=== PATIENT | female | born 1975 | race Caucasian/White ===

== ENCOUNTER 2024-03-03 12:42 | Emergency (ER) | payer OTHER, SELFPAY ==
[2024-03-03 12:51] VITALS: BP 160/98
--- NOTE | 2024-03-03 15:38 | ED.GENMED ---
History of Present Illness
General
Chief Complaint: Musculo-Skeletal Complaint
Source: patient
Exam Limitations: none
Time Seen by Provider: 03/03/24 14:11
Nursing documentation reviewed up to this point in time: agreed with
Travel History
Have you had any contact with someone who has COVID-19?: No
Do you have any symptoms of coronavirus? Fever > 100 degrees, chills, cough, shortness of breath, sore throat, loss of taste or smell, muscle aches, or headache?: No
History of Present Illness
History of Present Illness:
48-year-old female with past medical history of GERD, PCOS, hypothyroidism, chronic low back pain status post lumbar fusion who presents to the emergency room for evaluation of right thigh pain. Patient reports onset of symptoms a few weeks ago and
she feels they are generally worsening. She describes a sensation 'like an electric shock' in the right anterior thigh that radiates down towards the knee. It is worse with movement, no relieving factors noted. She denies any associated swelling.
She denies any associated rash. She denies any associated trauma. She has not had any back pain. She denies any other issues. She says that she did take a muscle relaxer yesterday which did not seem to help.
Past History
Past History
ED Past Medical History: GERD, Hypothyroidism, Psychiatric (Depression, anxiety) and Other (Orthostatic hypotension)
ED Past Surgical History: Appendectomy, Cholecystectomy, , Gynecological, Orthopedic and Other (Gastric bypass 2014)
Social History
Tobacco: Non-smoker
Alcohol: Occasional
Personal:
Living: with family
Employment: Employed
Family History
Family History: Other (Noncontributory)
Review of Systems
Review of Systems
All Other Systems: ROS reviewed and negative except as documented in HPI and ROS
Constitutional: Denies fever
Respiratory: Denies cough or trouble breathing
Cardiac: Denies chest pain
ABD/GI: Denies abdominal pain
: Denies flank pain
Musculoskeletal: Reports other (Thigh pain); Denies neck pain or back pain
Neurological: Denies headache
Phy Exam
Physical Exam
Physical Exam:
General: Awake, alert, oriented x3; no acute distress
Head: Normocephalic, atraumatic
Eyes: Conjunctiva normal
Throat: Airway intact, handling secretions
Neck: Trachea midline, supple without meningismus
Lungs: Breathing comfortably no distress
Heart: Tachycardia with regular rhythm
Abd: Soft, non distended, nontender
Neuro: No gross deficits
Skin: no rash�specifically no rash in the right thigh/inguinal crease
Extremities: No edema in extremities, equal pulses in all extremities�specifically she has a strong right femoral pulse, strong right DP and PT pulse; she does have some tenderness along the anterior medial thigh; she is able to move the right hip
and knee through full range of motion but has pain with full flexion of the hip
Scores
Heart Failure Risk
Heart Failure Risk Score: Not Applicable
Heart Score for Chest Pain Patients
STEMI patient?: Not applicable
Withdrawal Assessment of Alcohol
Withdrawal Assessment Completed?: Not applicable
Course
Orders/Labs/Results
Orders:
Orders
03/03/24 14:16
US Periph Venous LOWER Ext RT Urgent
Comment:
Reason For Exam: RLE pain
Vital Signs
Initial and Last Documented VS:
Initial Vital Signs
Temp Pulse Resp BP Pulse Ox
36.6 C 107 18 160/98 99
03/03/24 12:51 03/03/24 12:51 03/03/24 12:51 03/03/24 12:51 03/03/24 12:51
Last Documented Vital Signs
Temp Pulse Resp BP Pulse Ox
36.6 C 107 18 160/98 99
03/03/24 12:51 03/03/24 12:51 03/03/24 12:51 03/03/24 12:51 03/03/24 12:51
MDM/Problems Addressed
Differential Diagnosis Includes:
DVT, radiculopathy/pinched nerve, muscular strain, fracture/dislocation very unlikely with patient weightbearing and moving hip and knee through full range of motion
MDM/Problems Addressed:
48-year-old female with history as above presents for evaluation of atraumatic right anterior thigh pain for the past few weeks which she describes as electric shock; she does have a long history of back pain and is status post a lumbar fusion. No
trauma or injury. She is hypertensive and mildly tachycardic but is otherwise normal vitals. Physical exam as above. Suspect that this is likely radiculopathy (based on location of pain, L2 dermatome affected) based on description of pain with
her chronic back issues; will send for ultrasound to rule out DVT. She has bounding distal pulses and a warm well-perfused leg with brisk capillary refill�nothing to suggest claudication or arterial insufficiency. She has no rash or ecchymosis, no
swelling in the area. Will treat patient symptomatically and reassess after the above.
Acute Exacerbation and/or Progression of Chronic Illness:
Acutely hypertensive likely related to pain�treat pain but no emergent antihypertensive indicated at present
Acute Exacerbation and/or Progression of Chronic Illness: HTN
*Radiology
Radiology exam reviewed: radiology read reviewed
*Pulse Oximetry
Patient hypoxic: no
*Critical Care Note
Total Time (30-74mins, 75-104mins- exclusive of procedures): Not Applicable
Data Reviewed
Source: patient and spouse
Further Testing Considered But Not Given:
Considered x-ray but with no trauma and full range of motion in left hip and knee, patient weightbearing very low clinical suspicion for fracture and no emergent indication for x-ray at this point
ED Attending Note
-
Portions of this chart may have been created with voice recognition software.� Occasional wrong word or��sound alike� substitutions may have occurred due to the inherent limitations of voice recognition software.
Discharge Plan
Departure
Patient Disposition: Home (Routine Discharge)
Date of Disposition: 03/03/24
Time of Disposition: 15:51
Patient with high blood pressure during this ER visit?: Yes
Discharge Problem:
Acute lumbar radiculopathy, Pain in right thigh
Instructions: Radiculopathy (DC)
Prescriptions:
New
prednisone 10 mg Tablet
See Rx Instructions .ROUTE .COMPLEX Qty: 45 0RF
Rx Instructions:
Take By Mouth:
50 mg daily x3 days, 40 mg daily x3 days,
30 mg daily x3 days, 20 mg daily x3 days,
10 mg daily x3 days
tramadol 50 mg tablet
50 mg PO Q8H PRN (Reason: Pain) 5 Days Qty: 14 0RF
No Action
omeprazole [Prilosec] 40 MG capsule,delayed release(DR/EC)
40 mg PO QPM
levothyroxine 125 MCG tablet
125 mcg PO HS
multivitamin [Daily Multiple] 1 EACH tablet
1 ea PO BID
cyanocobalamin (vitamin B-12) 1,000 MCG tablet
500 mcg PO TID
venlafaxine [Effexor] 100 MG tablet
100 mg PO BID
docusate sodium [Colace] 100 MG capsule
100 mg PO BID
cholecalciferol (vitamin D3) 2,000 UNIT tablet
2,000 unit PO DAILY
Med For Ortho Hypotension
1 mg PO DAILY
Referrals:
Cathy Levin MD [Family Provider] - Follow up in 5-7 days
Activity Restrictions/Additional Instructions:
Thank you for visiting the Emergency Department at [facility].
1. Please schedule a follow up appointment as directed. Call first thing tomorrow morning to make an appointment.
2. If indicated, please take your medications as instructed and indicated on discharge paperwork.
3. If any of your symptoms do not improve, or persist, or become more severe within 6-12 hours, please return to the emergency department for further care.
4. Please return to the emergency department if you develop a headache, neck pain/stiffness, fever greater than 100.4F, chest pain, shortness of breath, persistent nausea, vomiting, slurred speech, difficulty walking, numbness/tingling, weakness,
signs of infection or any other symptoms that are worrisome to you.
Please call [phone] if you have any questions.
Interventions
Interventions:
*Risk Screen - Suicide Last Done: 03/03/24 12:52
*General Assessment Last Done: 03/03/24 12:52
*Neglect/Abuse Screening Last Done: 03/03/24 12:52
*ED COVID-19 Vaccine History Last Done: 03/03/24 12:52
ED-Musculoskeletal Assessment Last Done: 03/03/24 15:21
Discharge Date and Time
Print Language: CROATIAN
[2024-03-03] MEDS: DELTASONE 50 MG PO (15:51)
[2024-03-03] MEDS: ULTRAM 50 MG PO (15:51)
[2024-03-03 16:12] VITALS: BP 158/92
== END 2024-03-03 16:13 | disposition home or self-care (01) ==
LOC: EMR 12:42
PROVIDERS: EMERGENCY PHYSICIAN Emergency Medicine; FAMILY PHYSICIAN Family Medicine
DX: M54.16 Radiculopathy, lumbar region (principal); M79.651 Pain in right thigh; I10 Essential (primary) hypertension; E03.9 Hypothyroidism, unspecified; E28.2 Polycystic ovarian syndrome
CPT/HCPCS: 99284; 93971

== ENCOUNTER 2024-05-23 12:02 | Emergency (ER) | payer OTHER, SELFPAY ==
[2024-05-23] VITALS (8 sets, daily range): BP systolic 133–185; BP diastolic 74–120; BMI 43.2
--- NOTE | 2024-05-23 12:10 | ED.PDOC.TRB ---
ED Provider Triage
-
48-year-old female presents with sudden onset headache starting at 10 AM this morning. She also notes vision change and nausea. She has had imaging studies through [facility] in the recent past including MRA of the head and CTA of the head and
neck. She does not get headaches typically. Patient is neurologically intact ambulated into triage but due to sudden onset headache, CT of the head was ordered.
--- NOTE | 2024-05-23 13:19 | ED.GENMED ---
History of Present Illness
General
Chief Complaint: Headache
Source: patient, records and spouse
Exam Limitations: none
Time Seen by Provider: 05/23/24 12:59
Nursing documentation reviewed up to this point in time: agreed with
History of Present Illness
History of Present Illness:
Patient is a 48-year-old female who presents to the emergency department complaining of a right temporal headache that started 10 AM today that was somewhat sudden and off set. Patient feels slightly off balance but denies any focal weakness or
speech changes. Since the end of March the patient states her vision has been walking. Patient describes as it is blurry and seems to be moving about. Patient denies any recent illnesses or injuries. Patient denies fever, chills, nasal
congestion, sore throat or cough. Patient denies any cardiovascular or respiratory symptoms. Patient is mildly nauseous but denies any vomiting, diarrhea or abdominal pain. Patient denies any numbness or paresthesias. Patient reportedly had an
MRI/MRA which showed an aneurysm.
Past History
Past History
ED Past Medical History: GERD, Hypothyroidism, Psychiatric (Depression, anxiety) and Other (Orthostatic hypotension)
ED Past Surgical History: Appendectomy, Cholecystectomy, , Gynecological, Orthopedic and Other (Gastric bypass 2014)
Social History
Tobacco: Non-smoker
Alcohol: Occasional
Personal:
Living: with family
Employment: Employed
Family History
Family History: Other (Noncontributory)
Review of Systems
Review of Systems
All Other Systems: ROS reviewed and negative except as documented in HPI and ROS
Constitutional: Reports no symptoms
EENT: Reports other (Visual blurring since march)
Respiratory: Reports no symptoms
Cardiac: Reports no symptoms
ABD/GI: Reports nausea; Denies abdominal pain, vomiting, diarrhea, constipated or anorexia
: Reports no symptoms
Musculoskeletal: Reports no symptoms
Skin: Reports no symptoms
Neurological: Reports headache; Denies dizzy, weakness or numbness
Hematologic/Lymphatic: Reports no symptoms
Psychiatric: Reports no symptoms
Phy Exam
Physical Exam
Physical Exam:
Physical Exam
General: mild to moderate distress, alert and appropriate, well nourished, well hydrated
HENT: Normocephalic, supple with no lymphadenopathy, no thyromegaly
Eyes: Clear sclera, conjuctiva without injection, extraocular muscles intact, pupils equal reactive to light and accommodation, no visual tubbs cuts
Heart: Regular rhythm and rate. No S3, S4. No murmur. No NVD, bruit
Lungs: No respiratory distress, no stridor, lung sounds clear and equal bilaterally
Abdomen: Soft, nontender, no organomegaly, no CVA tenderness, BS good
Neuro: Alert and oriented x 3, CN II - XII intact, no motor focality, no cerebellar dysfunction
Skin: no rash
Psychiatric: well kept. interactive and cooperative
Extremities: No edema, cyanosis, tenderness, Good and equal peripheral pulses.
Course
Orders/Labs/Results
Orders:
Orders
05/23/24 12:08
CT Head W/o Iv Contrast Urgent
Comment:
Reason For Exam: headache, vision change
05/23/24 13:15
Ketorolac [Toradol] 15 mg IV NOW STA
Ondansetron Injectable [Zofran] 4 mg IV NOW STA
05/23/24 13:19
Diphenhydramine [Benadryl] 12.5 mg IV NOW STA
Prochlorperazine [Compazine] 5 mg IV NOW STA
05/23/24 13:27
Complete Blood Count/With Diff Urgent
Comprehensive Metabolic Panel Urgent
Lyme Progressive Urgent
Sed Rate [Erythrocyte Sed Rate] Urgent
Abnormal Lab Results
05/23/24
13:27
Hct 36.4 L %
(37.0-47.0)
RDW 15.9 H %
(11.5-14.5)
Plt Count 419 H 10^3/uL
(130-400)
MPV 10.6 H fL
(7.4-10.4)
ESR 26 H mm/hour
(0-20)
Glucose 135 H mg/dl
(70-99)
05/23/24 13:27
05/23/24 13:27
Vital Signs
Initial and Last Documented VS:
Initial Vital Signs
Temp Pulse Resp BP Pulse Ox
98.0 F 107 18 185/120 100
05/23/24 12:03 05/23/24 12:03 05/23/24 12:03 05/23/24 12:03 05/23/24 12:03
Last Documented Vital Signs
Temp Pulse Resp BP Pulse Ox
98.0 F 92 16 136/74 100
05/23/24 12:03 05/23/24 16:34 05/23/24 16:34 05/23/24 16:34 05/23/24 16:34
*Radiology
Radiology exam reviewed: radiology read reviewed (CT unremarkable)
*Pulse Oximetry
Patient hypoxic: no
*EKG
Interpreted by ED Provider?: NA
*School Coordinator Interpretation
Rate: School Coordinator- N/A
*Critical Care Note
Total Time (30-74mins, 75-104mins- exclusive of procedures): Not Applicable
Update Note
Update Note:
Patient feeling better. Patient does have an appointment with allergy at the end of July at [place]. Will refer the patient here and see if she can be seen sooner. Etiology of the patient's headache is not entirely clear. Patient does seem
to be somewhat old to be getting first-time migraines however certainly could be an issue. Does not appear to be ruptured aneurysm. Patient's sed rate is mildly elevated.
ED Attending Note
-
Portions of this chart may have been created with voice recognition software.� Occasional wrong word or��sound alike� substitutions may have occurred due to the inherent limitations of voice recognition software.
Discharge Plan
Departure
Patient Disposition: Home (Routine Discharge)
Date of Disposition: 05/23/24
Time of Disposition: 15:08
Patient with high blood pressure during this ER visit?: Yes
Condition: Fair
Covid-19: Not Applicable
Discharge Problem:
Headache
Instructions: Migraines (DC), Headache, Adult (DC), BLOOD PRESSURE
Prescriptions:
No Action
omeprazole [Prilosec] 40 MG capsule,delayed release(DR/EC)
40 mg PO QPM
levothyroxine 125 MCG tablet
125 mcg PO HS
multivitamin [Daily Multiple] 1 EACH tablet
1 ea PO BID
cyanocobalamin (vitamin B-12) 1,000 MCG tablet
500 mcg PO TID
venlafaxine [Effexor] 100 MG tablet
100 mg PO BID
docusate sodium [Colace] 100 MG capsule
100 mg PO BID
cholecalciferol (vitamin D3) 2,000 UNIT tablet
2,000 unit PO DAILY
Med For Ortho Hypotension
1 mg PO DAILY
Referrals:
Maria Elena Schofield PA [Family Provider] - Follow up in 5-7 days
Carmen Lemon DO [Active] - Call in 1-3 days for appt
Activity Restrictions/Additional Instructions:
Continue present medications and therapy. Use acetaminophen 1000 mg or ibuprofen 400 mg every 6 hours for pain. Any increasing pain or changes please return immediately.
Interventions
Interventions:
*Risk Screen - Suicide Last Done: 05/23/24 12:41
*General Assessment Last Done: 05/23/24 12:41
*Neglect/Abuse Screening Last Done: 05/23/24 12:41
ED- Fall Risk Assessment Last Done: 05/23/24 12:41
*ED COVID-19 Vaccine History Last Done: 05/23/24 12:41
*Nursing Disposition Last Done: 05/23/24 16:38
ED- Neurological Assessment Last Done: 05/23/24 12:41
Discharge Date and Time
Discharge Date/Time: 05/23/24 16:56
Print Language: MOHAWK
[2024-05-23] MEDS: BENADRYL 12.5 MG IV (13:30)
[2024-05-23] MEDS: TORADOL 15 MG IV (13:30)
[2024-05-23] MEDS: COMPAZINE 5 MG IV (13:30)
[2024-05-23 13:49] LABS: ALT (SGPT) 22 U/L (0-35); AST (SGOT) 29 U/L (14-36); Albumin 4.2 g/dl (3.5-5.0); Alkaline Phosphatase 96 U/L (38-126); Blood Urea Nitrogen 12 mg/dl (7-17); Carbon Dioxide 25 mmol/L (22-30); Chloride 107 mmol/L (98-107); Estimated Creatinine Clearance 104 ml/min; Glucose 135 mg/dl (70-99); Sodium 141 mmol/L (135-145); Total Bilirubin 0.5 mg/dl (0.2-1.3); Total Protein 6.6 g/dl (6.3-8.2); eGFR > 60.00
[2024-05-23 14:04] LABS: Erythrocyte Sed Rate 26 mm/hour (0-20)
[2024-05-23 14:09] LABS: % Basophils 0.8 % (0-2); % Immature Granulocytes 0.3 % (0-0.5); % Lymphocytes 37.2 % (20.5-51.1); % Monocytes 6.8 % (1.7-9.3); % Neutrophils 52.9 % (42.2-75.2); Absolute Basophils 0.1 10^3/uL (0-0.2); Absolute Eosinophils 0.2 10^3/uL (0-0.7); Absolute Lymphocytes 3.2 10^3/uL (1.2-3.4); Absolute Monocytes 0.6 10^3/uL (0.1-0.6); Absolute Neutrophils 4.5 10^3/uL (1.4-6.5); Hematocrit 36.4 % (37.0-47.0); Hemoglobin 12.3 g/dL (12.0-16.0); Mean Corp Hgb Conc. 33.8 g/dL (33.0-37.0); Mean Corpuscular Hgb 28.1 pg (27.0-31.0); Mean Corpuscular Volume 83.3 fL (81.0-99.0); Mean Platelet Volume 10.6 fL (7.4-10.4); Nucleated Red Blood Cells % 0 %; Platelet Count 419 10^3/uL (130-400); Red Blood Cell Count 4.37 10^6/uL (4.20-5.40); Red Cell Dist. Width 15.9 % (11.5-14.5); White Blood Cell Count 8.6 10^3/uL (4.8-10.8)
--- NOTE | 2024-05-23 16:35 | EDRN ---
Dr. Palumbo currently at the pts bedside speaking with the pt and the pts
[2024-05-27 12:14] LABS: Lyme Antibody Screen, EIA Negative (Negative)
== END 2024-05-23 16:56 | disposition home or self-care (01) ==
LOC: EMR 12:02
PROVIDERS: EMERGENCY PHYSICIAN Emergency Medicine; FAMILY PHYSICIAN Physician Assistant
DX: R51.9 Headache, unspecified (principal); R11.0 Nausea; H53.8 Other visual disturbances; R03.0 Elevated blood-pressure reading, without diagnosis of hypertension; K21.9 Gastro-esophageal reflux disease without esophagitis; I72.9 Aneurysm of unspecified site; E03.9 Hypothyroidism, unspecified; F32.A Depression, unspecified; F41.9 Anxiety disorder, unspecified; Z90.49 Acquired absence of other specified parts of digestive tract; Z98.84 Bariatric surgery status
CPT/HCPCS: 99284; 96374; 96375 ×2; 70450; 80053; 85025; 85652; 86618

== ENCOUNTER 2024-10-23 06:08 | Day surgery (SDC) | payer OTHER, SELFPAY ==
[2024-10-14 08:45] LABS: % Basophils 0.4 % (0-2); % Eosinophils 1.2 % (0-6); % Immature Granulocytes 0.3 % (0-0.5); % Lymphocytes 28.4 % (20.5-51.1); % Monocytes 5.8 % (1.7-9.3); % Neutrophils 63.9 % (42.2-75.2); Absolute Eosinophils 0.1 10^3/uL (0-0.7); Absolute Lymphocytes 2.2 10^3/uL (1.2-3.4); Absolute Monocytes 0.5 10^3/uL (0.1-0.6); Hemoglobin 13.5 g/dL (12.0-16.0); Mean Corp Hgb Conc. 32.9 g/dL (33.0-37.0); Mean Corpuscular Volume 91.1 fL (81.0-99.0); Mean Platelet Volume 9.6 fL (7.4-10.4); Nucleated Red Blood Cells % 0 %; Platelet Count 405 10^3/uL (130-400); White Blood Cell Count 7.8 10^3/uL (4.8-10.8)
[2024-10-14 09:22] LABS: Beta HCG Quantitative < 2.39 mIU/ml
[2024-10-14 09:32] LABS: Blood Urea Nitrogen 17 mg/dl (7-17); Calcium 9.6 mg/dl (8.4-10.2); Carbon Dioxide 30 mmol/L (22-30); Chloride 103 mmol/L (98-107); Glucose 86 mg/dl (70-99); Potassium 4.5 mmol/L (3.5-5.1); Sodium 142 mmol/L (135-145); eGFR > 60.00
[2024-10-14 14:03] VITALS: BMI 36.9
[2024-10-23] VITALS (10 sets, daily range): BP systolic 133–152; BP diastolic 68–84; BMI 36.9
[2024-10-23] MEDS: NEURONTIN 300 MG PO (11:43)
[2024-10-23] MEDS: NORMOSOL-R/PLASMALYTE-A 1000 IV (11:43)
[2024-10-23] MEDS: TYLENOL 1000 MG PO (11:43)
--- NOTE | 2024-10-23 19:23 | W.IMMPOSTOP ---
Surgical Immed Post Op Note
-
Primary Surgeon: Sabrina Santiago DO
Assisting Surgeon: none
Pre-op Diagnosis: Menorrhagia, endometrial mass
Post-op Diagnosis: same, endometrial polyp, submucosal fibroid
Procedure Performed: Hysteroscopy D&C; Polypectomy, operative hysteroscopy with resection of submucosal fibroid
Anesthesia Type: general LMA Dr. Sosa
Specimen / Cultures: 1. endocervical curettings 2. endometrial curettings 3. fragments resected submucosal fibroid
Estimated Blood Loss: 5ml
Complications: none
Fluid deficit: 100ml NSS
Operative Findings: Uterus approx 9 cm, bilateral tubal ostia seen. Endometrial polyp on stalk noted.
Submucosal fibroid noted protruding slightly into endometrial cavit along posterior wall.
Complications: none
Counts correct times 2.
== END 2024-10-23 15:45 | disposition home or self-care (01) ==
LOC: SDS 06:08
PROVIDERS: ATTENDING PHYSICIAN Obstetrics & Gynecology; FAMILY PHYSICIAN Physician Assistant
DX: D39.0 Neoplasm of uncertain behavior of uterus (principal); N84.0 Polyp of corpus uteri; D25.0 Submucous leiomyoma of uterus; N92.0 Excessive and frequent menstruation with regular cycle; R93.89 Abnormal findings on diagnostic imaging of other specified body structures
CPT/HCPCS: 58558; 88305; 36415; 80048; 84702; 85025; 86850; 86900; 86901; 93005

== ENCOUNTER → 2024-11-21 16:55 | Outpatient (REF) | payer OTHER, SELFPAY | LOC: RAD 16:55 | PROVIDERS: ATTENDING PHYSICIAN Obstetrics & Gynecology Gynecologic Oncology; FAMILY PHYSICIAN Physician Assistant; REFERRING PHYSICIAN Obstetrics & Gynecology | DX: C55 Malignant neoplasm of uterus, part unspecified (principal); N93.9 Abnormal uterine and vaginal bleeding, unspecified; Z98.84 Bariatric surgery status; D50.9 Iron deficiency anemia, unspecified; E83.10 Disorder of iron metabolism, unspecified | CPT/HCPCS: 71260; 74177; Q9967 ==